=== PATIENT | female | born 1965 | race Caucasian/White ===

== ENCOUNTER 2016-12-30 07:32 | Emergency (ER) | payer OTHER ==
[~2016-12-30] VITALS: Ht 157.5 cm; Wt 63.6 kg
[2016-12-30] MEDS ORDERED: IPRATROPIUM (NEB) 0.5 MG/2.5 ML AMP INH STA (07:47)
[2016-12-30] MEDS ORDERED: SOD CHLORIDE 0.9% 500 ML IV STA (07:47)
[2016-12-30] MEDS ORDERED: TERBUTALINE 1 MG/ML INJ SC STA (07:47)
[2016-12-30] MEDS ORDERED: ALBUTEROL 0.5% (NEB) 2.5 MG/0.5 ML AMP INH STA (07:47)
[2016-12-30] MEDS ORDERED: METHYLPREDNISOLONE 125 MG INJ IV STA ×2 (07:47→09:08)
[2016-12-30 07:52] VITALS: Ht 157.5 cm; Wt 63.6 kg
[2016-12-30 08:17] LABS: BASOPHILS % 0.3 % (0.0-2.0); EOSINOPHILS # 0.2 10^3/ul (0.0-0.5); EOSINOPHILS % 2.5 % (0.0-7.0); HEMATOCRIT 39.7 % (37.0-47.0); HEMOGLOBIN 13.3 g/dl (12.0-16.0); LYMPHOCYTES # 2.8 10^3/ul (0.8-2.9); LYMPHOCYTES % 41.6 % (15.0-51.0); MEAN CORPUSCULAR HEMOGLOBIN 29.2 pg (29.0-33.0); MEAN CORPUSCULAR HGB CONC 33.5 g/dl (32.0-37.0); MEAN CORPUSCULAR VOLUME 87.3 fl (82.0-101.0); MEAN PLATELET VOLUME 10.3 fl (7.4-10.4); MONOCYTE # 0.5 10^3/ul (0.3-0.9); NEUTROPHIL # 3.2 10^3/ul (1.6-7.5); NEUTROPHILS % 47.5 % (39.0-77.0); PLATELET COUNT 308 10^3/UL (140-415); RED BLOOD COUNT 4.55 10^6/ul (4.20-5.40); RED CELL DISTRIBUTION WIDTH 12.9 % (11.5-14.5); WHITE BLOOD COUNT 6.7 10^3/ul (4.8-10.8)
--- NOTE | 2016-12-30 08:29 | RADRPT ---
PROCEDURE: XR Chest. CLINICAL INDICATION: chest pain, asthma TECHNIQUE: Single frontal view of the chest was obtained COMPARISON: None FINDINGS: The heart and mediastinum are within normal limits. The lungs are clear. There is no pleural effusion or pneumothorax. RPTAT: AA IMPRESSION: No acute disease. .Carlos Harper MD, MD Date Time Electronically viewed and signed by .Carlos Harper MD, on 12/30/2016 08:29 .S/
[2016-12-30 08:50] LABS: ANION GAP 20 (8-16); BLOOD UREA NITROGEN 14 mg/dl (7-20); CALCIUM 9.5 mg/dl (8.4-10.2); CARBON DIOXIDE 23 mmol/L (21-31); CHLORIDE 103 mmol/L (97-110); CREATININE 0.69 mg/dl (0.44-1.00); GLUCOSE 198 mg/dl (70-220); POTASSIUM 3.2 mmol/L (3.5-5.1); SODIUM 143 mmol/L (135-144)
[2016-12-30 09:02] LABS: B-TYPE NATRIURETIC PEPTIDE 28 PG/ML (0-125)
[2016-12-30 09:09] LABS: TROPONIN-I < 0.012 ng/ml (0.00-0.12)
--- NOTE | 2016-12-30 09:14 | ERD ---
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 She says that the fumes that are sprayed on the hair are very noxious to her and she inhaled them. She says after she inhaled the fumes she has had some upper airway tightening over the past 3 days. She says this is happened to her before when she is inhaled these fumes in the past. She says that she has had some stridorous respirations over the past 3 days off-and-on but mild. She said this morning she was having worsening of stridorous respirations and became quite severe where she had a very difficult time catching her breath. Her son found her in the garage laying on the ground stridorous and having a hard time breathing and EMS was called. When they arrived they found the patient awake and having a difficult time breathing with stridor. There is administered 1 albuterol nebulizer treatment en route. ROS All systems reviewed and are negative except as per history of present illness. Medications Home Meds No Active Prescriptions or Reported Meds Allergies Allergies: Coded Allergies: No Known Allergy (Unverified , 12/30/16) PMhx/Soc History of Surgery: Yes (HYSTERECTOMY, APPENDECTOMY, REMOVAL OF KIDNEY STONES) Anesthesia Reaction: No Hx Neurological Disorder: No Hx Respiratory Disorders: No Hx Cardiac Disorders: No Hx Psychiatric Problems: No Hx Miscellaneous Medical Probl: No Hx Alcohol Use: Yes (OCCASIONALLY) Hx Substance Use: No Hx Tobacco Use: No Smoking Status: Never smoker FmHx Family History: No coronary disease Physical Exam Vitals Vital Signs Date Time Temp Pulse Resp B/P Pulse Ox O2 Delivery O2 Flow Rate FiO2 12/30/16 11:21 72 18 123/77 98 Room Air 12/30/16 09:28 104 20 100 12/30/16 08:15 Venti Mask 10 12/30/16 07:59 Venti Mask 10.0 12/30/16 07:58 100 22 100 Simple Mask 6.0 12/30/16 07:52 90 22 132/79 100 Physical Exam Const: Well-developed, well-nourished Head: Atraumatic, normocephalic Eyes: Normal Conjunctiva, PERRLA, EOMI, normal sclera, no nystagmus ENT: Normal External Ears, Nose and Mouth, moist mucus membranes. Neck: Full range of motion. No meningismus, no lymphadenopathy. Resp: Upper airway transmitted sounds, some mild accessory muscle use, there is no wheezing but there is some decreased air movement Cardio: Regular rate and rhythm, no murmurs, S1 S2 present Abd: Soft, non tender x 4, non distended. Normal bowel sounds, no guarding or rebound, no pulsitile abdominal masses or bruits Skin: No petechiae or rashes, no ecchymosis , no maculopapular rash Back: No midline or flank tenderness Ext: No cyanosis, or edema, FROM x 4, normal inspection, neurovascularly intact x 4 Neur: Awake and alert, STR 5/5 x 4, sensation intact x 4, no focal findings, cerebellum intact Psych: Normal Mood and Affect Result Diagram: 12/30/16 0759 12/30/16 0755 Results 24 hrs Laboratory Tests Test 12/30/16 07:55 12/30/16 07:59 12/30/16 11:20 Sodium Level 143mmol/L Potassium Level 3.2mmol/L Chloride Level 103mmol/L Carbon Dioxide Level 23mmol/L Anion Gap 20 Blood Urea Nitrogen 14mg/dl Creatinine 0.69mg/dl Glucose Level 198mg/dl Calcium Level 9.5mg/dl Troponin I < 0.012ng/ml B-Type Natriuretic Peptide 28PG/ML Salicylates Level < 1.0mg/dl White Blood Count 6.710^3/ul Red Blood Count 4.5510^6/ul Hemoglobin 13.3g/dl Hematocrit 39.7% Mean Corpuscular Volume 87.3fl Mean Corpuscular Hemoglobin 29.2pg Mean Corpuscular Hemoglobin Concent 33.5g/dl Red Cell Distribution Width 12.9% Platelet Count 65736^3/UL Mean Platelet Volume 10.3fl Neutrophils % 47.5% Lymphocytes % 41.6% Monocytes % 8.0% Eosinophils % 2.5% Basophils % 0.3% Nucleated Red Blood Cells % 0.0/100WBC Neutrophils # 3.210^3/ul Lymphocytes # 2.810^3/ul Monocytes # 0.510^3/ul Eosinophils # 0.210^3/ul Basophils # 0.010^3/ul Nucleated Red Blood Cells # 0.010^3/ul Urine Opiates Screen Negative Urine Barbiturates Negative Urine Amphetamines Screen Negative Urine Benzodiazepines Screen Negative Urine Cocaine Screen Negative Urine Cannabinoids Negative Current Medications Medications (Trade) Dose Ordered Sig/Tunde Route PRN Reason Start Time Stop Time Status Last Admin Dose Admin Sodium Chloride (NS) 500 ml @ 500 mls/hr Q1H STAT IV 12/30/16 07:47 12/30/16 08:46 DC 12/30/16 08:08 Albuterol (Proventil 0.5% (Neb)) 10 mg ONCE STAT INH 12/30/16 07:47 12/30/16 07:50 DC 12/30/16 07:57 Ipratropium [place] (Atrovent 0.02% (Neb)) 1 mg ONCE STAT INH 12/30/16 07:47 12/30/16 07:50 DC 12/30/16 07:57 Methylprednisolone Sodium Succinate (Solu-Medrol) 125 mg ONCE STAT IV 12/30/16 07:47 12/30/16 07:50 DC 12/30/16 08:08 Terbutaline Sulfate (Brethine) 0.25 mg ONCE STAT SC 12/30/16 07:47 12/30/16 07:50 DC 12/30/16 08:08 Methylprednisolone Sodium Succinate (Solu-Medrol) 125 mg ONCE STAT IV 12/30/16 09:08 12/30/16 09:11 DC 12/30/16 09:33 Epinephrine (Racepinephrine 2.25% (Neb)) 0.5 ml ONCE ONCE HHN 12/30/16 09:30 12/30/16 09:31 DC 12/30/16 09:25 Procedures/MDM EKG: Rate/Rhythm: Normal Sinus Rhythm,NL intervals QRS, ST, QT: NORMAL NC, QRS, QT] Impression: NORMAL EKG PROCEDURE: XR Chest. CLINICAL INDICATION: chest pain, asthma TECHNIQUE: Single frontal view of the chest was obtained COMPARISON: None FINDINGS: The heart and mediastinum are within normal limits. The lungs are clear. There is no pleural effusion or pneumothorax. RPTAT: AA IMPRESSION: No acute disease. .Carlos Harper MD, MD Date Time Electronically viewed and signed by .Carlos Harper MD, MD on 12/30/2016 08: 29 .S/ CC: SYLVIA BROWN DO After breathing treatments the patient states she feels significantly better and is asymptomatic. After further discussion the patient states that was not 4 days ago she was exposed to the fumes but she is exposed to these hair fumes on a daily basis all day long. I feel the patient is having some type of allergic reaction or inflammatory irritation from the chemicals in her throat. I advised her to wear a mask and to possibly get a new job or not perform these duties at work. Patient received albuterol nebulizer treatment as well as racemic epinephrine, Solu-Medrol IV Departure Diagnosis: Primary Impression: Anaphylactic reaction Encounter type: initial encounter Qualified Code: T78.2XXA - Anaphylactic reaction, initial encounter Condition: Stable SYLVIA BROWN DO Dec 30, 2016 09:14
[2016-12-30] MEDS ORDERED: RACEPINEPHRINE 2.25%(NEB) 0.5 ML AMP HHN ONE (09:30)
[2016-12-30 11:21] VITALS: BP 123/77; PULSE 72; RESP 18
[2016-12-30 11:56] LABS: BARBITURATES Negative (NEGATIVE); BENZODIAZEPINES Negative (NEGATIVE); CANNABINOIDS Negative (NEGATIVE); COCAINE Negative (NEGATIVE); OPIATES Negative (NEGATIVE)
[2016-12-30] MEDS ORDERED: PRED20TA PO (12:16)
[2016-12-30] MEDS ORDERED: ALBU8.5H3 INH (12:16)
[2016-12-30] MEDS ORDERED: EPIN0.3P4 INJ (12:16)
== END 2016-12-30 13:12 | disposition home or self-care (01) ==
LOC: E/R 07:32 → EDBD 07:32 → E/R 13:12
DX: T78.2XXA Anaphylactic shock, unspecified, initial encounter (principal); R40.2132 Coma scale, eyes open, to sound, at arrival to emergency department; R40.2252 Coma scale, best verbal response, oriented, at arrival to emergency department; R40.2362 Coma scale, best motor response, obeys commands, at arrival to emergency department
CPT/HCPCS: 71010; 80048; 80306; 80307; 83880; 84484; 85025; 93005; 94644; 94664; J2930; J3105; J7040; Z7610; 96372; 96374; 96376